=== PATIENT | male | born 1970 | race Caucasian/White ===

== ENCOUNTER → 2020-07-25 09:47 | Outpatient (CLI) | payer OTHER, SELFPAY ==
[2020-07-25 11:11] LABS: COVID19 -Nasal RAPID Negative (Negative)
== END ==
PROVIDERS: Family Provider Physician Assistant Medical; PCP Physician Assistant Medical; Visit Provider Surgery
DX: Z20.822 Contact with and (suspected) exposure to COVID-19 (principal)
CPT/HCPCS: 87635; C9803

== ENCOUNTER 2020-07-28 06:12 | Day surgery (SDC) | payer OTHER, SELFPAY ==
--- NOTE | 2020-07-28 | PATH_ITS ---
[facility] Accession Number: [id number] . 01 Material submitted: . colon - CECUM POLYP . 01 Clinical history: . DX COLONOSCOPY . 02 Diagnosis: Cecum, Polyp, Biopsy: Benign lymphoid aggregate. Additional levels were examined. MRV 08/01/2020 0955 Local . 02 Electronically signed: . Marga Tam MD, Pathologist NPI- [id number] . 01 Gross description: . CECUM POLYP: Received in formalin is 1 fragment(s) of perez, soft tissue measuring 0.4 x 0.2 x 0.2 cm submitted entirely in 1 cassette(s) /[place]ST[place] 07/29/2020 1904 Local . 02 Pathologist provided ICD-10: K63.5 . 02 CPT . 211375 Performed at: [address] [facility] [address] [id number] MD Baldo Coronado MD Phone: [phone] Performed at: 02 [facility] [address] [place], [place] [id number] MD Marga Tam MD Phone: [phone]
[2020-07-28] MEDS: LACTATED RINGERS 1,000 ML 200 ML IV (07:11)
[2020-07-28 07:12] VITALS: BP 164/81; PULSE 75; RESP 16; TEMP 36.8; O2SAT 99; BMI 32.8
--- NOTE | 2020-07-28 07:40 | PM.PREOP ---
Pre-operative Note Interval Note History & Physical reviewed/Exam performed by Physician: Yes Changes to H&P: No
[2020-07-28] MEDS: fentaNYL 250 MCG/5 ML INJ IV (07:44)
[2020-07-28] MEDS: MIDAZOLAM 5 MG/5 ML VIAL IV ×2 (07:44→07:49)
--- NOTE | 2020-07-28 08:07 | PM.OP.ENDO ---
Operative Date/Time/Diagnoses Date of procedure: 07/28/20 Time of procedure: 08:07 Pre-op diagnosis: change in bowel habits Post-op diagnosis: same Procedure & Clinicians Study performed: Colonoscopy Polypectomy Same procedure as scheduled: Yes Indications: no prior colonoscopy, change of bowel habits Surgeon: Henrry Stallings Procedure Notes Procedure in detail: Medications: Conscious sedation using 8mg IV midazolam and 200mcg IV of fentanyl The history and physical was performed/updated and the patient is ASA class is 2. The procedure was discussed in detail with the patient. Potential risks complications including infection, bleeding, missed diagnosis, perforation, need for surgery, and were explained. Their questions were answered and informed consent was obtained. Patient was brought to the procedure room and placed standard monitoring equipment. The patient's vital signs were monitored continuously throughout the entire procedure. Prior to starting time-out was performed. The patient was placed in the left lateral recumbent position. Procedural sedation was administered. Examination began with a thorough inspection of the perianal area there was no evidence of fissures, fistulae, external hemorrhoids or cutaneous malignancy. The colonoscopy scope was then placed into the anal canal and was advanced to the cecum, which was identified by the ileocecal valve, the appendiceal orifice and the confluence of the taenia. The scope was then slowly withdrawn examining colon thoroughly in all directions, irrigating it of any residual stool. -3 mm polyp in the cecum removed with biopsy forceps. -grade 1 internal hemorrhoids The patient tolerated the procedure well. They will be discharged once criteria are met. The prep was of fair quality. The withdrawl time was 7 minutes. The sedation time was 19 minutes. Specimen(s): other (Cecal polyp) Complications: none Impression: Colonic polyp Post-procedure Recommendations: Colonscopy in 5 years Disposition: same day surgery
[2020-07-28 08:08] VITALS: BP 134/75; PULSE 80; RESP 13; TEMP 36.6; O2SAT 97
[2020-07-28 08:13] VITALS: BP 128/81; PULSE 79; RESP 14; O2SAT 97
[2020-07-28 08:19] VITALS: BP 134/88; PULSE 79; RESP 11; O2SAT 96
[2020-07-28 08:21] VITALS: BP 141/80; PULSE 77; RESP 12; O2SAT 95
[2020-07-28 08:38] VITALS: BP 135/80; PULSE 71; RESP 14; TEMP 36.7; O2SAT 98
== END 2020-07-28 08:47 | disposition home or self-care (01) ==
PROVIDERS: Family Provider Physician Assistant Medical; PCP Physician Assistant Medical; Referring Provider Physician Assistant Medical; Visit Provider Surgery
PROC: 0DJD8ZZ Inspection of Lower Intestinal Tract, Via Natural or Artificial Opening Endoscopic (ICD-10-PCS; CPT 45378; principal; 2020-07-28 07:45)
DX: R19.4 Change in bowel habit (principal); K64.0 First degree hemorrhoids
CPT/HCPCS: 45380; 99152; J2250; J3010

== ENCOUNTER → 2023-08-05 12:26 | Outpatient (CLI) | payer OTHER, SELFPAY ==
--- NOTE | 2023-08-05 12:28 | DI.RAD.S_ITS ---
PROCEDURE: XR LUMBAR SPINE MIN 4V INDICATIONS: BACK PAIN TECHNIQUE: 5 views of the lumbar spine were acquired, including bilateral oblique views. COMPARISON: None. FINDINGS: Bones: 5 nonrib-bearing vertebrae are present. There is slight levo scoliotic bony alignment centered at L3. No vertebral body compression fractures. No suspicious bony lesions. Minimal facet osteoarthritic changes present at L4-5 and L5-S1 without subluxation. Soft tissues: Overlying bowel gas pattern is normal. No suspicious soft tissue calcifications. Oblique images: No pars defects. IMPRESSION: No acute bony abnormality. Minimal convex leftward scoliosis, mild degenerative facet osteoarthritic change at L4-5 and L5-S1 without subluxation. Dictated by: Vladimir Davis M.D. on 08/05/2023 at 13:21 Approved by: Vladimir Davis M.D. on 08/05/2023 at 13:22
== END ==
PROVIDERS: Family Provider Physician Assistant Medical; PCP Physician Assistant Medical; Referring Provider Anesthesiology; Visit Provider Anesthesiology
DX: M54.9 Dorsalgia, unspecified (principal)
CPT/HCPCS: 72110

== ENCOUNTER → 2025-01-25 07:03 | Outpatient (CLI) | payer OTHER, SELFPAY ==
--- NOTE | 2025-01-25 07:05 | DI.MRI.S_ITS ---
PROCEDURE: MR LUMBAR SPINE WO CON INDICATIONS: lumbosacral radic to left TECHNIQUE: Noncontrast sagittal T1 spin echo and T2 fast echo, sagittal STIR, and T2 fast spin echo through the lumbar spine. In cases with scoliosis, additional coronal T2 fast spin echo may be performed. COMPARISON: [facility], CR, XR LUMBAR SPINE MIN 4V, 08/05/2023, 11:41. FINDINGS: Image quality: Excellent. Alignment and Curvature: Trace anterolisthesis of L4 on L5. Bone Marrow: Marrow is of normal overall signal. No acute vertebral body compression fractures. Spinal Cord: Conus medullaris terminates at the L1-L2 level. Visualized cord demonstrates normal signal and size. Paraspinous Soft Tissues: No paravertebral masses. T12-L1: Normal appearance. L1-L2: Mild facet hypertrophy. No canal stenosis or foraminal stenosis. L2-L3: Mild facet hypertrophy. No canal stenosis or foraminal stenosis. L3-L4: Disc bulge. Facet hypertrophy. Short pedicles. Mild canal stenosis. No foraminal stenosis. L4-L5: Congenitally short pedicles. Exuberant facet hypertrophy. Trace anterolisthesis. Disc bulge. Epidural lipomatosis. Moderate canal stenosis. Reference axial image 26 of series 5. [id number]-[id number] bilateral foraminal stenosis. L5-S1: Disc bulge. Facet hypertrophy. Short pedicles. No canal stenosis or foraminal stenosis. IMPRESSION: 1. Underlying lower lumbar congenitally short pedicles and multilevel facet arthropathy. 2. Canal stenosis is mild at L3-L4 and moderate at L4-L5. Dictated by: Parish Teran M.D. on 01/25/2025 at 9:16 Approved by: Parish Teran M.D. on 01/25/2025 at 9:21
== END ==
PROVIDERS: Family Provider Physician Assistant Medical; Referring Provider Physical Medicine & Rehabilitation; Visit Provider Physical Medicine & Rehabilitation
DX: M47.26 Other spondylosis with radiculopathy, lumbar region (principal); M47.27 Other spondylosis with radiculopathy, lumbosacral region; M51.17 Intervertebral disc disorders with radiculopathy, lumbosacral region; M51.16 Intervertebral disc disorders with radiculopathy, lumbar region; M48.061 Spinal stenosis, lumbar region without neurogenic claudication; E88.2 Lipomatosis, not elsewhere classified; Q76.49 Other congenital malformations of spine, not associated with scoliosis
CPT/HCPCS: 72148

== ENCOUNTER 2025-02-21 08:07 | Outpatient (CLI) | payer OTHER, SELFPAY ==
[2025-02-21 09:15] VITALS: BP 171/85; BP 180/85; PULSE 80; PULSE 83; RESP 14; RESP 16; O2SAT 82; O2SAT 96
[2025-02-21 09:19] VITALS: BP 154/90; PULSE 85; RESP 16; O2SAT 95
[2025-02-21] MEDS: LIDOCAINE 1% (PF) 5 ML 10 ML INJ (09:20)
[2025-02-21 09:21] VITALS: BP 165/98; PULSE 77; RESP 16; O2SAT 95
[2025-02-21 09:30] VITALS: BP 159/74; PULSE 94; RESP 15; O2SAT 96
--- NOTE | 2025-02-21 12:24 | PM.PROC.IR.1 ---
Date/Time/Diagnoses Date of procedure: 02/21/25 Time of procedure: 09:00 Pre-procedure diagnosis: Lumbar stenosis, low back pain, lumbosacral radiculopathy Post-procedure diagnosis: same Procedure Notes Procedure: Interlaminar epidural steroid injection L5-S1 Indications: Lumbar stenosis, low back pain, lumbosacral radiculopathy Physician: Gen Gibbons Total sedation minutes: 0 Complications: none Procedure in detail & Post-procedure care: Patient is here for the planned procedure today as noted. No significant change since the last office visit. For additional clinical scenario please see those office notes. Focused exam: Vital signs reviewed as charted on intake. Gen: Well developed. No acute distress. CV: RRR, no M/R/G Chest: Non-labored breathing, CTAB. Psych: Alert and well-oriented. Mood/Affect: normal. Patient suitable for the planned procedure today: Yes === The following procedure was performed in the office today: Lumbar Epidural Steroid Injection with fluoroscopic guidance - Interlaminar approach (09285) Levels Treated: [L5-S1] Approach: interlaminar Soft tissue: [1% lidocaine 2 mL] Test dose: [1% lidocaine 1 mL] Injectate: 0.75 mL of Depo-Medrol (80mg/mL) in 1.25 mL 1% lidocaine and 1 mL normal saline Fluoroscopy Agent: Isovue 300-M 1.5 mL Notes: Left paramedian. 4.5 in 20 gauge Touhy needle utilized and adequate. Preprocedure pain 4/10, postprocedure pain 2/10. Procedure: After discussing the risks, benefits, and alternatives to the procedure, the patient expressed understanding and wished to proceed. The risks include but are not limited to infection, allergic reaction, nerve damage, stroke, paralysis, epidural hematoma, syncope, headache, respiratory or cardiac arrest, spinal cord injury, and scar formation. Informed consent was obtained and all patient questions were answered. The patient was brought to the procedure suite and placed in the prone position. A pre-procedural pause was conducted to verify: correct patient identity, procedure to be performed and as applicable, correct side and site, correct patient position, and any special requirements. Using a paramedian approach from the side noted above, the region overlying the target was localized under fluoroscopic visualization and the soft tissues overlying this structure were infiltrated with the anesthetic listed above. With fluoroscopic guidance, a #20 gauge Tuohy needle (unless otherwise noted) was inserted into the epidural space using a paramedian approach. The epidural space was localized utilizing intermittent multiplanar fluoroscopic guidance and loss of resistance technique. After negative aspiration, the contrast noted above was injected into the epidural space and the flow of contrast was observed, confirming epidural spread without evidence of intravascular or intrathecal spread. Multi-planar radiographs were obtained for documentation purposes. A test dose of lidocaine was injected into the above noted epidural space, and the patient was observed for 30-60 seconds. No sensory deficits were reported and normal lower extremity motor function was noted. Subsequently, the injectate as noted above was administered into the level noted above. The patient tolerated the procedure well and was discharged after an appropriate period of observation. If there are any complications, the patient was instructed to call us. The patient is to follow-up with the requesting provider in 2-3 weeks. This note was compiled using voice recognition software and therefore may contain typos. Please contact the author with any questions or concerns.
== END 2025-02-21 09:33 | disposition home or self-care (01) ==
PROVIDERS: Family Provider Physician Assistant Medical; Visit Provider Physical Medicine & Rehabilitation
DX: M54.17 Radiculopathy, lumbosacral region (principal); M48.061 Spinal stenosis, lumbar region without neurogenic claudication
CPT/HCPCS: 62323; J1010